=== PATIENT | male | born 1970 | race Two or more races ===

== ENCOUNTER 2018-12-20 09:04 | Inpatient (IN) | payer OTHER ==
[2018-12-20 09:21] VITALS: BMI 25.7
--- NOTE | 2018-12-20 09:59 | HP ---
COWS - Scale Resting Pulse: 1= ND 81-100 Sweatin= Chills/Flushing Restless Observation: 3= Extraneous Movement Pupil Size: 1= Pupils >than Normal Bone or Joint Aches: 2= Severe Diffuse Aches Runny Nose/ Eye Tearin= Runny Nose/Eyes GI Upset > 30mins: 2= Nausea/Diarrhea Tremor Observation: 2= Slight Tremor Visible Yawning Observation: 2= >3x During Session Anxiety or Irritability: 2=Irritable/Anxious Goose Flesh Skin: 0=Smooth Skin COWS Score: 18 CIWA Score - Admission Criteria OASAS Guidelines: Admission for Medically Managed Detox: Requires at least one of the followin. CIWA greater than 12 2. Seizures within the past 24 hours 3. Delirium tremens within the past 24 hours 4. Hallucinations within the past 24 hours 5. Acute intervention needed for co occurring medical disorder 6. Acute intervention needed for co occurring psychiatric disorder 7. Severe withdrawal that cannot be handled at a lower level of care (continued vomiting, continued diarrhea, abnormal vital signs) requiring intravenous medication and/or fluids 8. Admission ROS S - HPI Chief Complaint: i need help to stop using heroin and cocaine Allergies/Adverse Reactions: Allergies Allergy/AdvReac Type Severity Reaction Status Date / Time No Known Drug Allergies Allergy Verified 12/20/18 09:28 [place] Allergy Severe Rash Uncoded 12/20/18 09:28 History of Present Illness: this 48 years old male with heroin and cocaine dependence seeking detox, withdrawal symptom multiple admissions in detox,last [facility] in 11/21 not completed keep relapsing nicotine dependence 5 cigarette/day,requesting nicotine gum weight loss longest period of sobriety 3 years plan to go to rehab after detox Exam Limitations: No Limitations - Ebola screening Have you traveled outside of the country in the last 21 days: No Have you had contact with anyone from an Ebola affected area: No Do you have a fever: No - Review of Systems Constitutional: Chills, Loss of Appetite, Malaise, Night Sweats, Changes in sleep, Weakness, Unintentional Wgt. Loss EENT: reports: Tearing, Nose Congestion Respiratory: reports: No Symptoms reported Cardiac: reports: No Symptoms Reported GI: reports: Diarrhea, Nausea, Vomiting, Abdominal cramping : reports: No Symptoms Reported Musculoskeletal: reports: Joint Pain, Muscle Pain Integumentary: reports: Dryness Neuro: reports: Headache, Tremors Endocrine: reports: No Symptoms Reported Hematology: reports: No Symptoms Reported Psychiatric: reports: No Sypmtoms Reported, Judgement Intact, Mood/Affect Appropiate, Orientated x3 Other Systems: Reviewed and Negative Patient History - Patient Medical History Hx Anemia: No Hx Asthma: No Hx Chronic Obstructive Pulmonary Disease (COPD): No Hx Cardiac Disorders: No Hx Hypertension: No Hx Hypercholesterolemia: No HX Cerebrovascular Accident: No Hx Seizures: No Hx Diabetes: No Hx Gastrointestinal Disorders: No Hx Liver Disease: No Hx Genitourinary Disorders: No Hx Sexually Transmitted Disorders: No Hx Renal Disease (ESRD): No Hx Thyroid Disease: No Hx Human Immunodeficiency Virus (HIV): No (NEGATIVE HX last 2017) Hx Hepatitis C: Yes (treated) Hx Depression: Yes Hx Suicide Attempt: No Hx Bipolar Disorder: No Hx Schizophrenia: No Other Medical History: no suicidal,no homicidal - Patient Surgical History Past Surgical History: No - PPD History Previous Implant?: Yes Documented Results: Negative w/o proof Implanted On Prior [facility] Admission?: No Date: 02/14/16 Results: TBD PPD to be Administered?: Yes - Smoking Cessation Smoking history: Current every day smoker Have you smoked in the past 12 months: Yes Aproximately how many cigarettes per day: 5 Hx Chewing Tobacco Use: No Initiated information on smoking cessation: Yes 'Breaking Loose' booklet given: 12/20/18 - Substance & Tx. History Hx Alcohol Use: No Hx Substance Use: Yes Substance Use Type: Cocaine, Heroin Hx Substance Use Treatment: Yes ([facility] 11/21 not completed) - Substances abused Heroin Substance route: Injection Frequency: Daily Amount used: 14 BAGS Age of first use: 16 Date of last use: 12/19/18 Cocaine Substance route: Injection Frequency: Daily Amount used: 1 AND 1/2 GRAMS Age of first use: 18 Date of last use: 12/19/18 Family Disease History - Family Disease History Family Disease History: Diabetes: Mother (HTN-), Other: Mother Admission Physical Exam [facility] - Vital Signs Vital Signs: Vital Signs - 24 hr 12/20/18 12/20/18 09:20 09:21 Temperature 97.6 F 97.6 F Pulse Rate 83 83 Respiratory 18 18 Rate Blood Pressure 123/83 123/83 - Physical General Appearance: Yes: Moderate Distress, Tremorous, Irritable, Sweating, Anxious HEENTM: Yes: Normal ENT Inspection, JOSI, Pharynx Normal Respiratory: Yes: Lungs Clear, Normal Breath Sounds, No Respiratory Distress Neck: Yes: Within Normal Limits, Supple, Trachea in good position Breast: Yes: Within Normal Limits Cardiology: Yes: Within Normal Limits, Regular Rhythm, Regular Rate, S1, S2 Abdominal: Yes: Within Normal Limits, Normal Bowel Sounds, Non Tender, Flat, Soft Genitourinary: Yes: Within Normal Limits Back: Yes: Muscle Spasm Musculoskeletal: Yes: Back pain, Joint Stiffness, Muscle Pain Extremities: Yes: Normal Range of Motion, Tremors Neurological: Yes: still photographer II-XII NML intact, Fully Oriented, Alert, Motor Strength 5/5 Integumentary: Yes: Dry, Track Mccrary Lymphatic: Yes: Within Normal Limits - Diagnostic (1) Opioid dependence with withdrawal Current Visit: No Status: Acute (2) Cocaine dependence, uncomplicated Current Visit: No Status: Acute (3) Hepatitis C Current Visit: No Status: Acute (4) Nicotine dependence Current Visit: No Status: Acute Qualifiers: Nicotine product type: cigarettes Substance use status: uncomplicated Qualified Code(s): F17.210 - Nicotine dependence, cigarettes, uncomplicated (5) IVDU (intravenous drug user) Current Visit: Yes Status: Acute (6) Weight loss Current Visit: Yes Status: Acute (7) Dehydration Current Visit: Yes Status: Acute Cleared for Admission [facility] - Detox or Rehab [facility] Level of Care: Medically Managed Detox Regimen/Protocol: Methadone Breathalyzer - Breathalyzer Breathalyzer: 0 Urine Drug Screen - Test Device Lot number: [id number] Expiration date: 08/04/20 - Control Is test valid?: Yes - Results Drug screen NEGATIVE: No Urine drug screen results: VENTURA-Cocaine, FEN-Fentanyl, MOP-Opiates, MTD-Methadone , BZO-Benzodiazepines Inpatient Rehab Admission - Rehab Decision to Admit Inpatient rehab admission?: No
[2018-12-20] MEDS ORDERED: BISMUTH SUBSALICYLATE 262 MG/15 ML BTL PO PRN (10:09)
[2018-12-20] MEDS ORDERED: NICOTINE POLACRILEX 2 MG GUM BUC PRN (10:09)
[2018-12-20] MEDS ORDERED: IBUPROFEN 400 MG TABLET (FP) PO PRN (10:09)
[2018-12-20] MEDS ORDERED: MAGNESIUM HYDROX 2400MG/30ML ORAL SUSPENSION 30 ML CUP PO PRN (10:09)
[2018-12-20] MEDS ORDERED: METHOCARBAMOL 500 MG TABLET PO PRN (10:09)
[2018-12-20] MEDS ORDERED: MENTHOL/PHENOL 1 EACH UD MM PRN (10:09)
[2018-12-20] MEDS ORDERED: hydrOXYzine PAMOATE 25 MG CAPSULE (FP) PO PRN (10:09)
[2018-12-20] MEDS ORDERED: ACETAMINOPHEN 325 MG TABLET (FP) PO PRN ×2 (10:09)
[2018-12-20] MEDS ORDERED: cloNIDine HCL 0.1 MG TABLET PO PRN (10:09)
[2018-12-20] MEDS ORDERED: MAG HYDROX/AL HYDROX/SIMETH 30 ML UNIT-DOSE CUP PO PRN (10:09)
[2018-12-20] MEDS ORDERED: MAGNESIUM CITRATE 300 ML BOTTLE PO PRN (10:09)
[2018-12-20] MEDS ORDERED: MELATONIN 5 MG TABLETS PO PRN (10:09)
[2018-12-20] MEDS ORDERED: METHADONE HCL 10 MG TABLET (FOR DETOX USE ONLY) PO ONE ×2 (10:15→23:00)
[2018-12-20] MEDS: diazePAM 5 MG TABLET PO PRN ×2 (10:48→15:10)
[2018-12-20 14:51] LABS: HEMATOCRIT 37.8 % (35.4-49); HEMOGLOBIN 12.7 GM/dL (11.7-16.9); MCH 31.7 pg (25.7-33.7); MCHC 33.7 g/dl (32.0-35.9); MEAN CELL VOLUME 94.1 fl (80-96); MEAN PLT VOLUME 8.3 fl (7.5-11.1); PLATELET COUNT 246 K/MM3 (134-434); RBC 4.02 M/mm3 (4.00-5.60); RDW 14.4 % (11.9-15.9); WHITE BLOOD COUNT 7.2 K/mm3 (4.0-10.0)
[2018-12-20 14:57] LABS: PH,URINE 5.5 (5.0-8.0); URINE APPEARANCE CLEAR; URINE BILIRUBIN NEGATIVE (NEGATIVE); URINE COLOR YELLOW; URINE GLUCOSE (UA) NEGATIVE (NEGATIVE); URINE KETONE NEGATIVE (NEGATIVE); URINE LEUK ESTERASE NEGATIVE (NEGATIVE); URINE NITRITE NEGATIVE (NEGATIVE); URINE PROTEIN NEGATIVE (NEGATIVE)
[2018-12-20 14:59] LABS: ALBUMIN 3.7 g/dl (3.4-5.0); ALK PHOS 83 U/L (45-117); ANION GAP 5 MMOL/L (8-16); BILIRUBIN,TOTAL 0.6 mg/dL (0.2-1); BLOOD UREA NITROGEN 22 mg/dL (7-18); CHLORIDE 101 mmol/L (98-107); CO2 33 mmol/L (21-32); CREATININE 0.9 mg/dL (0.55-1.3); GLUCOSE,RANDOM 113 mg/dL (74-106); SGOT/AST 25 U/L (15-37); SGPT/ALT 23 U/L (13-61); SODIUM 139 mmol/L (136-145)
[2018-12-20] MEDS: THIAMINE HCL 100 MG TABLET (FP) PO SCH (22:33)
[2018-12-21] MEDS ORDERED: PRENATAL VITAMINS W/ FOLIC ACID TABLET (FP) PO SCH (10:00)
[2018-12-21] MEDS ORDERED: METHADONE HCL 10 MG TABLET (FOR DETOX USE ONLY) PO ONE (10:00)
[2018-12-21] MEDS: diazePAM 5 MG TABLET PO PRN ×2 (10:07→17:20)
--- NOTE | 2018-12-21 14:17 | PN ---
[facility] COWS - Scale Resting Pulse: 2= [place] 101-120 Sweatin= Chills/Flushing Restless Observation: 0= Sits Still Pupil Size: 0= Normal to Room Light Bone or Joint Aches: 2= Severe Diffuse Aches Runny Nose/ Eye Tearin= Nasal Congestion GI Upset > 30mins: 2= Nausea/Diarrhea Tremor Observation of Outstretched Hands: 2= Slight Tremor Visible Yawning Observation: 1= 1-2x During Session Anxiety or Irritability: 2=Irritable/Anxious Goose Flesh Skin: 3=Piloerection COWS Score: 16 BHS Progress Note (SOAP) Subjective: Anxious, Tremors, Body Aches, Sweating, Diarrhea. Objective: PATIENT A & O X 3. IN NO ACUTE DISTRESS. 12/21/18 14:20 Vital Signs Temperature 98.8 F 12/21/18 14:09 Pulse Rate 101 H 12/21/18 14:09 Respiratory Rate 20 12/21/18 14:09 Blood Pressure 110/82 12/21/18 14:09 O2 Sat by Pulse Oximetry (%) Laboratory Tests 12/20/18 12/20/18 12/20/18 10:25 10:45 10:45 WBC 7.2 RBC 4.02 Hgb 12.7 Hct 37.8 D MCV 94.1 MCH 31.7 MCHC 33.7 RDW 14.4 D Plt Count 246 MPV 8.3 Sodium 139 Potassium 4.0 Chloride 101 Carbon Dioxide 33 H Anion Gap 5 L BUN 22 H Creatinine 0.9 Creat Clearance w eGFR 90.45 Random Glucose 113 H Calcium 9.0 Total Bilirubin 0.6 AST 25 ALT 23 Alkaline Phosphatase 83 Total Protein 7.0 Albumin 3.7 Urine Color Urine Appearance Urine pH Ur Specific [place] Urine Protein Urine Glucose (UA) Urine Ketones Urine Blood Urine Nitrite Urine Bilirubin Urine Urobilinogen Ur Leukocyte Esterase RPR Titer HIV 1&2 Antibody Screen Negative HIV P24 Antigen Negative 12/20/18 12/20/18 10:45 10:45 WBC RBC Hgb Hct MCV MCH MCHC RDW Plt Count MPV Sodium Potassium Chloride Carbon Dioxide Anion Gap BUN Creatinine Creat Clearance w eGFR Random Glucose Calcium Total Bilirubin AST ALT Alkaline Phosphatase Total Protein Albumin Urine Color Yellow Urine Appearance Clear Urine pH 5.5 Ur Specific [place] 1.036 H Urine Protein Negative Urine Glucose (UA) Negative Urine Ketones Negative Urine Blood Negative Urine Nitrite Negative Urine Bilirubin Negative Urine Urobilinogen 1.0 Ur Leukocyte Esterase Negative RPR Titer Nonreactive HIV 1&2 Antibody Screen HIV P24 Antigen LABS NOTED. Assessment: 12/21/18 14:23 WITHDRAWAL SYMPTOMS. Plan: CONTINUE DETOX. INCREASE DAILY PO FLUID INTAKE. PRN PEPTO-BISMOL PO FOR DIARRHEA.
[2018-12-21] MEDS: THIAMINE HCL 100 MG TABLET (FP) PO SCH (23:53)
[2018-12-22 06:39] VITALS: BP 115/70; PULSE 85; TEMP 97.7
--- NOTE | 2018-12-22 09:05 | DS ---
[facility] Detox Discharge Summary Admission Date: 12/20/18 Discharge Date: 12/22/18 - History Present History: Opioid Dependence Pertinent Past History: Pt leaving AMA--admitted 2 days ago for heroin detox- pt using IV heroin- injection site neck... Pt did not give a reason why he wants to leave early- says he is still in withdrawal inspite of the doses of methadone detox protocol d/w pt at length about MAT methadone or suboxone- pt promised to go today to sign up - Physical Exam Results Vital Signs: Vital Signs Temperature 97.7 F 12/22/18 06:00 Pulse Rate 85 12/22/18 06:00 Respiratory Rate 18 12/22/18 06:00 Blood Pressure 115/70 12/22/18 06:00 O2 Sat by Pulse Oximetry (%) - Medication Discharge Medications: Ambulatory Orders NK [No Known Home Medication] 02/12/16 - AMA Did Patient Leave Against Medical Advice: Yes
[2018-12-22] MEDS ORDERED: METHADONE HCL 10 MG TABLET (FOR DETOX USE ONLY) PO ONE (10:00)
[2018-12-23] MEDS ORDERED: METHADONE HCL 10 MG TABLET (FOR DETOX USE ONLY) PO ONE (10:00)
[2018-12-24] MEDS ORDERED: METHADONE HCL 5 MG TABLET (FOR DETOX USE ONLY) PO ONE (06:00)
== END 2018-12-22 09:09 | disposition left against medical advice (07) | DRG 770 ==
LOC: YASAS 09:04 → Y6N 10:15
PROVIDERS: ADMIT Surgery; ATTEND Surgery
PROC: HZ2ZZZZ Detoxification Services for Substance Abuse Treatment (ICD-10-PCS; principal; 2018-12-20)
DX: F11.23 Opioid dependence with withdrawal (principal); F14.20 Cocaine dependence, uncomplicated; F17.213 Nicotine dependence, cigarettes, with withdrawal; E86.0 Dehydration; B18.2 Chronic viral hepatitis C; R63.4 Abnormal weight loss; Z59.0 Homelessness
CPT/HCPCS: 36415; 80053; 81003; 85027; 86593; 87389

== ENCOUNTER 2019-11-09 12:52 | Inpatient (IN) | payer OTHER ==
--- NOTE | 2019-11-09 13:19 | BHS.RME ---
Substance Use & Tx History - Substance Use History Alcohol Substance amount: 5 or 6 beers, 16 oz Frequency of use: Daily Substance route: Oral Date of Last Use: 11/08/19 Opiates (Heroin) Substance amount: 10-15 baGS Frequency of use: Daily Substance route: Injection (ex: intravenous or skin popping) Date of Last Use: 11/08/19 Cocaine (Powder) Substance amount: 3 GRAMS Frequency of use: Daily Substance route: Inhalation (ex: sniffing or snorting), Injection (ex: intravenous or skin popping) Date of Last Use: 11/07/19 Benzodiazepines Substance amount: xANAX one or two tabs Frequency of use: Less than 3 times per week Substance route: Oral Date of Last Use: 11/05/19 - Last Treatment Treatment type: Medical Physical/Psych/Mental Status - Behavior General Behavior: Increased activity (restlessness, agitation) Eye Contact: Normal - Cooperativeness Cooperativeness: Cooperative - Thinking Thought Processes: Tight Thought content: Future oriented - Physical Health Problems Is patient presently having any pain?: No Does patient presently have any injuries (include location): Yes (nose injury Oct 28) Does patient currently have a fever: No Is patient : No CIWA Nausea/Vomitin-Mild Nausea/No Vomiting Muscle Tremors: 4-Moderate,w/Arms Extend Anxiety: 1-Mildly Anxious Agitation: 0-Normal Activity Paroxysmal Sweats: 1-Minimal Palms Moist Orientation: 0-Oriented Tacttile Disturbances: 0-None Auditory Disturbances: 0-None Visual Disturbances: 0-None Headache: 1-Very Mild CIWA-Ar Total Score: 8
--- NOTE | 2019-11-09 14:23 | HP ---
CIWA Score Nausea/Vomitin-Mild Nausea/No Vomiting Muscle Tremors: 4-Moderate,w/Arms Extend Anxiety: 1-Mildly Anxious Agitation: 0-Normal Activity Paroxysmal Sweats: 1-Minimal Palms Moist Orientation: 0-Oriented Tacttile Disturbances: 0-None Auditory Disturbances: 0-None Visual Disturbances: 0-None Headache: 1-Very Mild CIWA-Ar Total Score: 8 - Admission Criteria OASAS Guidelines: Admission for Medically Managed Detox: Requires at least one of the followin. CIWA greater than 12 2. Seizures within the past 24 hours 3. Delirium tremens within the past 24 hours 4. Hallucinations within the past 24 hours 5. Acute intervention needed for co occurring medical disorder 6. Acute intervention needed for co occurring psychiatric disorder 7. Severe withdrawal that cannot be handled at a lower level of care (continued vomiting, continued diarrhea, abnormal vital signs) requiring intravenous medication and/or fluids 8. Admitting History and Physical - Admission Chief Complaint: " I want to get help. I was here yesterday and there was no beds." History of Present Illness: 49 year old male with history of alcohol dependence, opioid dependence, cocaine use disorder. He was at [facility] 11/08/19 depressed and suicidal due to his situation at home but was cleared psychiatrically. He denies suicidal ideation or intent at this time. He was here 17-12/22/18 but left AMA Alcohol: 5-6 beers daily started drinking at age 17, last drank yesterday. He had a blackout 2 weeks ago, but denies seizures. Heroin: 10-15 bags of heroin daily first started using at age 16 and last used 11/08/19. He had 3 overdoses in past and last overdosed 2 months ago. Cocaine: 3 grams intravenously daily started using at age 21 and last used 11/07/19 Nicotine: 2-3 ciggs per day started smoking at age of 31 Bzo: Xanax street 1-2 pills per day, 0.2mg daily and last used 4 days ago PMH: None Psurg: None Psych: H/O Depression on no current meds. He is seeking detox from alcohol due to homlessness, high risk for relapse due to poor recovery environment, also has OD X3 in past History Source: Patient Limitations to Obtaining History: No Limitations - Past Medical History Psych: Yes: Depression - Past Surgical History Past Surgical History: Yes: None - Smoking History Smoking history: Current every day smoker Have you smoked in the past 12 months: Yes Aproximately how many cigarettes per day: 5 - Alcohol/Substance Use Hx Alcohol Use: Yes (5-6 beers) History of Substance Use: reports: Cocaine, Heroin - Social History Usual Living Arrangement: Yes: Alone Do you think of yourself as: Straight/Heterosexual ADL: Independent History of Recent Travel: No Admission [facility] Allergies/Adverse Reactions: Allergies Allergy/AdvReac Type Severity Reaction Status Date / Time No Known Drug Allergies Allergy Verified 12/20/18 09:28 [place] Allergy Severe Rash Uncoded 12/20/18 09:28 Exam Limitations: No Limitations - Ebola screening Have you traveled outside of the country in the last 21 days: No Have you had contact with anyone from an Ebola affected area: No Have you been sick,other than usual withdrawal symptoms: No Do you have a fever: No - Review of Systems Constitutional: No Symptoms Reported EENT: reports: No Symptoms Reported Respiratory: reports: No Symptoms reported Cardiac: reports: No Symptoms Reported GI: reports: No Symptoms Reported : reports: No Symptoms Reported Musculoskeletal: reports: No Symptoms Reported Integumentary: reports: No Symptoms Reported Neuro: reports: No Symptoms reported Endocrine: reports: No Symptoms Reported Hematology: reports: No Symptoms Reported Psychiatric: reports: Judgement Intact, Mood/Affect Appropiate, Orientated x3, Anxious, Depressed Other Systems: Reviewed and Negative Patient History - Patient Medical History Hx Anemia: No Hx Asthma: No Hx Chronic Obstructive Pulmonary Disease (COPD): No Hx Cardiac Disorders: No Hx Hypertension: No Hx Hypercholesterolemia: No HX Cerebrovascular Accident: No Hx Seizures: No Hx Diabetes: No Hx Gastrointestinal Disorders: No Hx Liver Disease: No Hx Genitourinary Disorders: No Hx Sexually Transmitted Disorders: No Hx Renal Disease (ESRD): No Hx Thyroid Disease: No Hx Human Immunodeficiency Virus (HIV): No (NEGATIVE HX last 2017) Hx Hepatitis C: Yes (treated) Hx Depression: Yes Hx Suicide Attempt: No Hx Bipolar Disorder: No Hx Schizophrenia: No - Patient Surgical History Past Surgical History: No - PPD History Previous Implant?: Yes Documented Results: Negative w/o proof Implanted On Prior [facility] Admission?: Yes Date: 03/08/19 Results: negative PPD to be Administered?: Yes - Smoking Cessation Smoking history: Current every day smoker Have you smoked in the past 12 months: Yes Aproximately how many cigarettes per day: 5 Hx Chewing Tobacco Use: No Initiated information on smoking cessation: Yes 'Breaking Loose' booklet given: 11/09/19 - Substances abused Alcohol Substance route: Oral Frequency: Daily Amount used: 5-6 beers Age of first use: 17 Date of last use: 11/08/19 Heroin Substance route: Injection Frequency: Daily Amount used: 10-15 bags Age of first use: 16 Date of last use: 11/08/19 Cocaine Substance route: Injection Frequency: Daily Amount used: 3 grams Age of first use: 21 Date of last use: 11/07/19 Admission Physical Exam [facility] - Vital Signs Vital Signs: Vital Signs - 24 hr 11/09/19 13:50 Temperature 98 F Pulse Rate 87 Respiratory 18 Rate Blood Pressure 117/74 Cleared for Admission [facility] - Detox or Rehab [facility] Level of Care: Medically Managed Detox Regimen/Protocol: Methadone/Librium Claeared for Rehab Admission: No Screened but not Admitted - Documentation of Visit Screened but not Admitted: No Breathalyzer - Breathalyzer Breathalyzer: 0 Urine Drug Screen - Test Device Lot number: [id number] Expiration date: 08/04/21 - Control Is test valid?: Yes - Results Drug screen NEGATIVE: No Urine drug screen results: VENTURA-Cocaine, FEN-Fentanyl, MOP-Opiates, MTD-Methadone Inpatient Rehab Admission - Rehab Decision to Admit Inpatient rehab admission?: No
[2019-11-09] MEDS ORDERED: MENTHOL/PHENOL 1 EACH UD MM PRN (14:28)
[2019-11-09] MEDS ORDERED: cloNIDine HCL 0.1 MG TABLET PO PRN (14:28)
[2019-11-09] MEDS ORDERED: ACETAMINOPHEN 325 MG TABLET (FP) PO PRN ×2 (14:28)
[2019-11-09] MEDS ORDERED: NICOTINE POLACRILEX 2 MG GUM BUC PRN (14:28)
[2019-11-09] MEDS ORDERED: MAGNESIUM CITRATE 300 ML BOTTLE PO PRN (14:28)
[2019-11-09] MEDS ORDERED: MAG HYDROX/AL HYDROX/SIMETH 30 ML UNIT-DOSE CUP PO PRN (14:28)
[2019-11-09] MEDS ORDERED: chlordiazePOXIDE HCL 25 MG CAPSULE PO PRN (14:28)
[2019-11-09] MEDS ORDERED: IBUPROFEN 400 MG TABLET (FP) PO PRN (14:28)
[2019-11-09] MEDS ORDERED: MAGNESIUM HYDROX 2400MG/30ML ORAL SUSPENSION 30 ML CUP PO PRN (14:28)
[2019-11-09 15:18] VITALS: BMI 20.3
[2019-11-09] MEDS ORDERED: METHADONE HCL 10 MG TABLET (FOR DETOX USE ONLY) PO ONE (15:30)
[2019-11-09] MEDS ORDERED: ONDANSETRON *ODT* 4 MG TABLET SL ONE (15:36)
[2019-11-09] MEDS ORDERED: BISMUTH SUBSALICYLATE 262 MG/15 ML BTL PO PRN (15:37)
--- NOTE | 2019-11-09 18:07 | CONSULT ---
[facility] Psychiatric Consult - Data Date of interview: 11/09/19 Admission source: [facility] Identifying data: Met with this patient on TWO occasions, at bedside, for psychiatric evaluation (requested by medical team). Mr Smith declines. Nursing staff is made aware.
[2019-11-09] MEDS: chlordiazePOXIDE HCL 25 MG CAPSULE PO SCH ×2 (18:17→23:01)
[2019-11-09] MEDS: METHOCARBAMOL 500 MG TABLET PO PRN (18:18)
[2019-11-09] MEDS: hydrOXYzine PAMOATE 25 MG CAPSULE (FP) PO SCH ×2 (18:18→23:01)
[2019-11-09] MEDS: PRENATAL VITAMINS W/ FOLIC ACID TABLET (FP) PO SCH (18:19)
[2019-11-09] MEDS: NICOTINE 7 MG/24 HOURS TOPICAL PATCH TD SCH (18:20)
[2019-11-09] MEDS: THIAMINE HCL 100 MG TABLET (FP) PO SCH (23:01)
[2019-11-09] MEDS: MELATONIN 5 MG TABLETS PO SCH (23:02)
[2019-11-10] MEDS: hydrOXYzine PAMOATE 25 MG CAPSULE (FP) PO SCH ×5 (06:54→23:57)
[2019-11-10] MEDS: chlordiazePOXIDE HCL 25 MG CAPSULE PO SCH ×4 (06:54→23:57)
[2019-11-10 09:16] LABS: HEMATOCRIT 32.5 % (35.4-49); HEMOGLOBIN 11.2 GM/dL (11.7-16.9); MCHC 34.5 g/dl (32.0-35.9); MEAN CELL VOLUME 92.9 fl (80-96); MEAN PLT VOLUME 7.5 fl (7.5-11.1); PLATELET COUNT 346 K/MM3 (134-434); RBC 3.49 M/mm3 (4.00-5.60); RDW 13.9 % (11.9-15.9); WHITE BLOOD COUNT 5.7 K/mm3 (4.0-10.0)
[2019-11-10 09:24] LABS: ALBUMIN 2.7 g/dl (3.4-5.0); BILIRUBIN,TOTAL 0.6 mg/dL (0.2-1); BLOOD UREA NITROGEN 17.6 mg/dL (7-18); CALCIUM 8.3 mg/dL (8.5-10.1); CREATININE 0.9 mg/dL (0.55-1.3); POTASSIUM 4.3 mmol/L (3.5-5.1); TOT PROT 5.9 g/dl (6.4-8.2)
[2019-11-10] MEDS ORDERED: METHADONE (DETOX) 20 MG, METHADONE (DETOX) 5 MG PO ONE (10:00)
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
[2019-11-10] MEDS: PRENATAL VITAMINS W/ FOLIC ACID TABLET (FP) PO SCH (12:22)
[2019-11-10] MEDS: NICOTINE 7 MG/24 HOURS TOPICAL PATCH TD SCH (12:22)
[2019-11-10] MEDS: METHADONE HCL 40 MG DISPERSABLE TABLET PO SCH (12:24)
[2019-11-10] MEDS: THIAMINE HCL 100 MG TABLET (FP) PO SCH (23:57)
[2019-11-10] MEDS: MELATONIN 5 MG TABLETS PO SCH (23:57)
[2019-11-11] MEDS: chlordiazePOXIDE HCL 25 MG CAPSULE PO SCH ×4 (06:47→23:23)
[2019-11-11] MEDS: METHADONE HCL 40 MG DISPERSABLE TABLET PO SCH (06:47)
[2019-11-11] MEDS: hydrOXYzine PAMOATE 25 MG CAPSULE (FP) PO SCH ×5 (06:48→23:21)
[2019-11-11] MEDS ORDERED: METHADONE HCL 10 MG TABLET (FOR DETOX USE ONLY) PO ONE (10:00)
[2019-11-11] MEDS: PRENATAL VITAMINS W/ FOLIC ACID TABLET (FP) PO SCH (10:41)
[2019-11-11] MEDS: NICOTINE 7 MG/24 HOURS TOPICAL PATCH TD SCH (10:44)
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
[2019-11-11] MEDS: BACITRACIN 0.9 GM PACKET TP SCH (21:00)
[2019-11-11] MEDS: MELATONIN 5 MG TABLETS PO SCH (23:21)
[2019-11-11] MEDS: THIAMINE HCL 100 MG TABLET (FP) PO SCH (23:23)
[2019-11-12] MEDS ORDERED: chlordiazePOXIDE HCL 10 MG CAPSULE PO PRN
[2019-11-12] MEDS: chlordiazePOXIDE HCL 10 MG CAPSULE PO SCH ×4 (05:49→22:27)
[2019-11-12] MEDS: hydrOXYzine PAMOATE 25 MG CAPSULE (FP) PO SCH ×5 (05:49→23:00)
[2019-11-12] MEDS: METHADONE HCL 40 MG DISPERSABLE TABLET PO SCH (05:49)
[2019-11-12] MEDS ORDERED: METHADONE (DETOX) 10 MG, METHADONE (DETOX) 5 MG PO ONE (10:00)
[2019-11-12] MEDS: NICOTINE 7 MG/24 HOURS TOPICAL PATCH TD SCH (10:36)
[2019-11-12] MEDS: PRENATAL VITAMINS W/ FOLIC ACID TABLET (FP) PO SCH (10:36)
[2019-11-12] MEDS: BACITRACIN 0.9 GM PACKET TP SCH ×2 (10:36→23:00)
--- NOTE | 2019-11-12 13:57 | PN ---
S CIWA - CIWA Score Nausea/Vomitin-No Nausea/No Vomiting Muscle Tremors: 1-None Visible, but [place] Anxiety: 1-Mildly Anxious Agitation: 0-Normal Activity Paroxysmal Sweats: 1-Minimal Palms Moist Orientation: 0-Oriented Tacttile Disturbances: 0-None Auditory Disturbances: 0-None Visual Disturbances: 0-None Headache: 0-None Present CIWA-Ar Total Score: 3 BHS Progress Note (SOAP) Subjective: 49 years old male admitted on 11/09/19 for alcohol withdrawal sx management treating with librium detox regiment slept through the night feeling better social with peers in day room participating in behavior and psychosocial therapies groups and meetings patient determines to maintain sober Objective: 11/12/19 13:58 Vital Signs Temperature 98.7 F 11/12/19 12:40 Pulse Rate 90 11/12/19 12:40 Respiratory Rate 20 11/12/19 12:40 Blood Pressure 114/72 11/12/19 12:40 O2 Sat by Pulse Oximetry (%) Laboratory Last Values WBC 5.7 K/mm3 (4.0-10.0) 11/10/19 07:40 RBC 3.49 M/mm3 (4.00-5.60) L 11/10/19 07:40 Hgb 11.2 GM/dL (11.7-16.9) L 11/10/19 07:40 Hct 32.5 % (35.4-49) L 11/10/19 07:40 MCV 92.9 fl (80-96) 11/10/19 07:40 MCH 32.0 pg (25.7-33.7) 11/10/19 07:40 MCHC 34.5 g/dl (32.0-35.9) 11/10/19 07:40 RDW 13.9 % (11.9-15.9) 11/10/19 07:40 Plt Count 346 K/MM3 (134-434) D 11/10/19 07:40 MPV 7.5 fl (7.5-11.1) 11/10/19 07:40 Sodium 142 mmol/L (136-145) 11/10/19 07:40 Potassium 4.3 mmol/L (3.5-5.1) 11/10/19 07:40 Chloride 108 mmol/L (98-107) H 11/10/19 07:40 Carbon Dioxide 31 mmol/L (21-32) 11/10/19 07:40 Anion Gap 3 MMOL/L (8-16) L 11/10/19 07:40 BUN 17.6 mg/dL (7-18) 11/10/19 07:40 Creatinine 0.9 mg/dL (0.55-1.3) 11/10/19 07:40 Est GFR (CKD-EPI)AfAm 116.65 11/10/19 07:40 Est GFR (CKD-EPI)NonAf 100.64 11/10/19 07:40 Random Glucose 84 mg/dL (74-106) 11/10/19 07:40 Calcium 8.3 mg/dL (8.5-10.1) L 11/10/19 07:40 Total Bilirubin 0.6 mg/dL (0.2-1) 11/10/19 07:40 AST 16 U/L (15-37) 11/10/19 07:40 ALT 25 U/L (13-61) 11/10/19 07:40 Alkaline Phosphatase 75 U/L (45-117) 11/10/19 07:40 Total Protein 5.9 g/dl (6.4-8.2) L 11/10/19 07:40 Albumin 2.7 g/dl (3.4-5.0) L 11/10/19 07:40 RPR Titer Nonreactive (NONREACTIVE) 11/10/19 07:40 lab noted Assessment: 11/12/19 13:59 alcohol withdrawal Plan: librium regiment
[2019-11-12] MEDS: THIAMINE HCL 100 MG TABLET (FP) PO SCH (22:26)
[2019-11-12] MEDS: MELATONIN 5 MG TABLETS PO SCH (22:27)
[2019-11-13] MEDS: hydrOXYzine PAMOATE 25 MG CAPSULE (FP) PO SCH ×5 (06:17→22:34)
[2019-11-13] MEDS: chlordiazePOXIDE HCL 10 MG CAPSULE PO SCH ×2 (06:17→17:28)
[2019-11-13] MEDS: METHADONE HCL 40 MG DISPERSABLE TABLET PO SCH (06:17)
--- NOTE | 2019-11-13 09:34 | PN ---
[facility] CIWA - CIWA Score Nausea/Vomitin-No Nausea/No Vomiting Muscle Tremors: 1-None Visible, but [place] Anxiety: 0-No Anxiety, at Ease Agitation: 0-Normal Activity Paroxysmal Sweats: No Perspiration Orientation: 0-Oriented Tacttile Disturbances: 0-None Auditory Disturbances: 0-None Visual Disturbances: 1-Very Mild Sensitivity Headache: 0-None Present CIWA-Ar Total Score: 2 S Progress Note (SOAP) Subjective: 49 years old male admitted on 11/09/19 for alcohol withdrawal sx management treating with librium detox regiment history of hepatitis C positive Utox fental and opiate received methadone 40 mg po daily history of IV drug user feeling better today encourage the patient to attend groups and meetings while in detox Objective: 11/13/19 09:40 Vital Signs Temperature 96.7 F L 11/13/19 08:34 Pulse Rate 104 H 11/13/19 08:34 Respiratory Rate 18 11/13/19 08:34 Blood Pressure 114/71 11/13/19 08:34 O2 Sat by Pulse Oximetry (%) Laboratory Last Values WBC 5.7 K/mm3 (4.0-10.0) 11/10/19 07:40 RBC 3.49 M/mm3 (4.00-5.60) L 11/10/19 07:40 Hgb 11.2 GM/dL (11.7-16.9) L 11/10/19 07:40 Hct 32.5 % (35.4-49) L 11/10/19 07:40 MCV 92.9 fl (80-96) 11/10/19 07:40 MCH 32.0 pg (25.7-33.7) 11/10/19 07:40 MCHC 34.5 g/dl (32.0-35.9) 11/10/19 07:40 RDW 13.9 % (11.9-15.9) 11/10/19 07:40 Plt Count 346 K/MM3 (134-434) D 11/10/19 07:40 MPV 7.5 fl (7.5-11.1) 11/10/19 07:40 Sodium 142 mmol/L (136-145) 11/10/19 07:40 Potassium 4.3 mmol/L (3.5-5.1) 11/10/19 07:40 Chloride 108 mmol/L (98-107) H 11/10/19 07:40 Carbon Dioxide 31 mmol/L (21-32) 11/10/19 07:40 Anion Gap 3 MMOL/L (8-16) L 11/10/19 07:40 BUN 17.6 mg/dL (7-18) 11/10/19 07:40 Creatinine 0.9 mg/dL (0.55-1.3) 11/10/19 07:40 Est GFR (CKD-EPI)AfAm 116.65 11/10/19 07:40 Est GFR (CKD-EPI)NonAf 100.64 11/10/19 07:40 Random Glucose 84 mg/dL (74-106) 11/10/19 07:40 Calcium 8.3 mg/dL (8.5-10.1) L 11/10/19 07:40 Total Bilirubin 0.6 mg/dL (0.2-1) 11/10/19 07:40 AST 16 U/L (15-37) 11/10/19 07:40 ALT 25 U/L (13-61) 11/10/19 07:40 Alkaline Phosphatase 75 U/L (45-117) 11/10/19 07:40 Total Protein 5.9 g/dl (6.4-8.2) L 11/10/19 07:40 Albumin 2.7 g/dl (3.4-5.0) L 11/10/19 07:40 RPR Titer Nonreactive (NONREACTIVE) 11/10/19 07:40 lab noted Assessment: 11/13/19 09:40 alcohol withdrawal Plan: librium regiment
[2019-11-13] MEDS ORDERED: METHADONE HCL 10 MG TABLET (FOR DETOX USE ONLY) PO ONE (10:00)
[2019-11-13] MEDS: NICOTINE 7 MG/24 HOURS TOPICAL PATCH TD SCH (10:31)
[2019-11-13] MEDS: METHOCARBAMOL 500 MG TABLET PO PRN (10:31)
[2019-11-13] MEDS: PRENATAL VITAMINS W/ FOLIC ACID TABLET (FP) PO SCH (10:31)
[2019-11-13] MEDS: BACITRACIN 0.9 GM PACKET TP SCH ×2 (10:31→22:31)
[2019-11-13] MEDS: THIAMINE HCL 100 MG TABLET (FP) PO SCH (22:31)
[2019-11-13] MEDS: MELATONIN 5 MG TABLETS PO SCH (22:32)
[2019-11-14] MEDS ORDERED: chlordiazePOXIDE HCL 10 MG CAPSULE PO ONE (05:00)
[2019-11-14] MEDS: hydrOXYzine PAMOATE 25 MG CAPSULE (FP) PO SCH ×2 (05:58→10:20)
[2019-11-14] MEDS: METHADONE HCL 40 MG DISPERSABLE TABLET PO SCH (05:58)
[2019-11-14] MEDS ORDERED: METHADONE HCL 5 MG TABLET (FOR DETOX USE ONLY) PO ONE (06:00)
[2019-11-14 09:11] VITALS: BP 105/68; PULSE 81; TEMP 98.2
[2019-11-14] MEDS: PRENATAL VITAMINS W/ FOLIC ACID TABLET (FP) PO SCH (10:18)
[2019-11-14] MEDS: NICOTINE 7 MG/24 HOURS TOPICAL PATCH TD SCH (10:20)
[2019-11-14] MEDS: BACITRACIN 0.9 GM PACKET TP SCH (10:20)
--- NOTE | 2019-11-14 11:33 | DS ---
[facility] Detox Discharge Summary Admission Date: 11/09/19 Discharge Date: 11/14/19 - History Present History: Alcohol Dependence Additional Comments: 49 years old male admitted on 11/09/19 for alcohol withdrawal sx management treated with libirum detox regiment Mr Smith has completed the librium regiment and is tolerated well alert oriented x 3 respiratory clear lungs sound bilaterally on auscultation skin nose tip skin abrasion no acute bleeding dressing instruction clean with soap and water pad dry bacitracine ointment apply cover with gauze extremities full range of motion Pertinent Past History: time for discharge 42 minutes - Physical Exam Results Vital Signs: Vital Signs Temperature 98.2 F 11/14/19 08:37 Pulse Rate 81 11/14/19 08:37 Respiratory Rate 18 11/14/19 08:37 Blood Pressure 105/68 11/14/19 08:37 O2 Sat by Pulse Oximetry (%) Pertinent Admission Physical Exam Findings: alcohol withdrawal Vital Signs Temperature 98.2 F 11/14/19 08:37 Pulse Rate 81 11/14/19 08:37 Respiratory Rate 18 11/14/19 08:37 Blood Pressure 105/68 11/14/19 08:37 O2 Sat by Pulse Oximetry (%) Laboratory Last Values WBC 5.7 K/mm3 (4.0-10.0) 11/10/19 07:40 RBC 3.49 M/mm3 (4.00-5.60) L 11/10/19 07:40 Hgb 11.2 GM/dL (11.7-16.9) L 11/10/19 07:40 Hct 32.5 % (35.4-49) L 11/10/19 07:40 MCV 92.9 fl (80-96) 11/10/19 07:40 MCH 32.0 pg (25.7-33.7) 11/10/19 07:40 MCHC 34.5 g/dl (32.0-35.9) 11/10/19 07:40 RDW 13.9 % (11.9-15.9) 11/10/19 07:40 Plt Count 346 K/MM3 (134-434) D 11/10/19 07:40 MPV 7.5 fl (7.5-11.1) 11/10/19 07:40 Sodium 142 mmol/L (136-145) 11/10/19 07:40 Potassium 4.3 mmol/L (3.5-5.1) 11/10/19 07:40 Chloride 108 mmol/L (98-107) H 11/10/19 07:40 Carbon Dioxide 31 mmol/L (21-32) 11/10/19 07:40 Anion Gap 3 MMOL/L (8-16) L 11/10/19 07:40 BUN 17.6 mg/dL (7-18) 11/10/19 07:40 Creatinine 0.9 mg/dL (0.55-1.3) 11/10/19 07:40 Est GFR (CKD-EPI)AfAm 116.65 11/10/19 07:40 Est GFR (CKD-EPI)NonAf 100.64 11/10/19 07:40 Random Glucose 84 mg/dL (74-106) 11/10/19 07:40 Calcium 8.3 mg/dL (8.5-10.1) L 11/10/19 07:40 Total Bilirubin 0.6 mg/dL (0.2-1) 11/10/19 07:40 AST 16 U/L (15-37) 11/10/19 07:40 ALT 25 U/L (13-61) 11/10/19 07:40 Alkaline Phosphatase 75 U/L (45-117) 11/10/19 07:40 Total Protein 5.9 g/dl (6.4-8.2) L 11/10/19 07:40 Albumin 2.7 g/dl (3.4-5.0) L 11/10/19 07:40 RPR Titer Nonreactive (NONREACTIVE) 11/10/19 07:40 T.pallidum Ab Interpret Cancelled 11/10/19 07:40 lab noted - Treatment Hospital Course: Detox Protocol Followed, Detoxed Safely, Responded well, Discharged Condition Good, Rehab Referral Accepted Patient has Accepted [facility] - Medication Discharge Medications: Ambulatory Orders NK [No Known Home Medication] 02/12/16 - Diagnosis (1) Alcohol dependence, uncomplicated Current Visit: Yes Status: Acute (2) Hepatitis C Current Visit: Yes Status: Chronic Qualifiers: Viral hepatitis chronicity: carrier Qualified Code(s): B18.2 - Chronic viral hepatitis C (3) Nicotine dependence Current Visit: Yes Status: Acute Qualifiers: Nicotine product type: cigarettes Substance use status: in withdrawal Qualified Code(s): F17.213 - Nicotine dependence, cigarettes, with withdrawal (4) Weight loss Current Visit: Yes Status: Acute - AMA Did Patient Leave Against Medical Advice: No CIWA Score - CIWA Score Nausea/Vomitin-No Nausea/No Vomiting Muscle Tremors: 1-None Visible, but [place] Anxiety: 0-No Anxiety, at Ease Agitation: 0-Normal Activity Paroxysmal Sweats: No Perspiration Orientation: 0-Oriented Tacttile Disturbances: 0-None Auditory Disturbances: 0-None Visual Disturbances: 0-None Headache: 0-None Present CIWA-Ar Total Score: 1
== END 2019-11-14 12:23 | disposition other institution (70) | DRG 773 ==
LOC: YASAS 12:52 → Y3N 15:18
PROVIDERS: ADMIT Allergy & Immunology; ATTEND Allergy & Immunology
PROC: HZ2ZZZZ Detoxification Services for Substance Abuse Treatment (ICD-10-PCS; principal; 2019-11-09)
DX: F10.230 Alcohol dependence with withdrawal, uncomplicated (principal); F11.20 Opioid dependence, uncomplicated; F14.20 Cocaine dependence, uncomplicated; F17.210 Nicotine dependence, cigarettes, uncomplicated; B18.2 Chronic viral hepatitis C; R63.4 Abnormal weight loss; Z91.018 Allergy to other foods; Z59.0 Homelessness
CPT/HCPCS: 36415; 80053; 85027; 86593; Q0162